=== PATIENT | male | born 1965 | race Caucasian/White ===

== ENCOUNTER 2016-05-28 19:19 | Emergency (ER) ==
--- NOTE | 2016-05-28 19:35 | ED EKG INTERP ---
EKG Interpretation - EKG Time of EKG reading by physician:: 19:34 EKG Read and Signed by:: Mason Chin EKG Interpretation (*Must complete 3 of following elements*): Normal Rate: 65 Rhythm: Sinus rhythm with short [place] Attestation - Scribe Verification/Attestation Scribe:: Ren Duran Acting as Scribe for:: Mason Chin Scribe documention review:: This chart was documented by a scribe and accurately reflects the service the provider performed and the decisions made by the provider.
[2016-05-28 20:00] LABS: MANUAL DIFF NEEDED? NO
[2016-05-28 20:09] LABS: BASO% 0.9 % (0.0-0.8); EOS# 0.14 X1000 (0.0-0.7); EOS% 1.7 % (0.0-10.0); HEMATOCRIT 38.7 % (42.0-52.0); IMM GRAN# 0.02 X1000 (0.0-0.04); IMM GRAN% 0.2 % (0.0-0.5); MCHC 36.2 g/dL (33-37); MCV 88.4 FL (81-99); MONO# 0.89 X1000 (0.11-0.59); MPV 11.1 FL (7.4-10.4); NEUT% 55.2 % (42.2-75.2); PLT 235 X1000 (130-400); RBC 4.38 XMIL (4.7-6.1)
[2016-05-28] MEDS: NITROGLYCERIN SL PRN ×3 (20:10→20:30)
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
[2016-05-28 20:26] LABS: AGAP 18; ALBUMIN 4.2 g/dL (3.5-5.0); ALKALINE PHOSPHATASE 61 U/L (32-122); BUN 11 mg/dL (8-22); CALCIUM 9.7 mg/dL (8.8-10.2); CHLORIDE 99 mmol/L (98-107); CK PROFILE 97 U/L (24-204); COSMO 278; GOT 13 U/L (10-34); GPT 10 U/L (10-44); POTASSIUM 3.8 mmol/L (3.5-5.1); SODIUM 140 mmol/L (136-145); TCO2 23 mmol/L (25-35); TOTAL BILIRUBIN 0.32 mg/dL (0.20-1.00); TOTAL PROTEIN 6.9 g/dL (6.3-8.3)
[2016-05-28 20:28] LABS: INR 0.97; PROTIME 9.9 Seconds (9.2-11.7); PTT 24.5 Seconds (22.0-36.0)
[2016-05-28] MEDS ORDERED: ZOFRAN IV ONE (20:38)
[2016-05-28] MEDS ORDERED: MORPHINE IV ONE (20:38)
--- NOTE | 2016-05-28 21:56 | Diag Imaging Result Document ---
PROCEDURE NAME: CHEST-2 VIEWS - 05/28/2016 FRONTAL AND LATERAL CHEST, 2 VIEWS: COMPARISON: 04/22/2014. FINDINGS: The lungs are well expanded. The heart is not enlarged. The vessels are not distended. No pneumonia. No pleural effusions. There has been prior surgery to the lower neck. No free air beneath the diaphragm. IMPRESSION: No acute abnormality.
[2016-05-28] MEDS ORDERED: ULTRAM PO ONE (23:07)
[2016-05-29 00:43] VITALS: BP 127/67
--- NOTE | 2016-05-30 09:52 | EKG Report ---
Test Performed on : 05/28/2016 9:20:19 PM Test Reason : CP Blood Pressure : / mmHG Vent. Rate : 060 BPM Atrial Rate : 060 BPM P-R Int : 106 ms QRS Dur : 096 ms QT Int : 404 ms P-R-T Axes : 060 066 052 degrees QTc Int : 404 ms Sinus rhythm. with short [place] Possible Left atrial enlargement Borderline ECG When compared with ECG of 28-MAY-2016 19:29, (Unconfirmed) No significant change was found Unconfirmed Result
--- NOTE | 2016-05-30 15:29 | EKG Report ---
Test Performed on : 05/28/2016 7:29:18 PM Test Reason : ED. Not ordered in [place] Blood Pressure : / mmHG Vent. Rate : 065 BPM Atrial Rate : 065 BPM P-R Int : 104 ms QRS Dur : 094 ms QT Int : 394 ms P-R-T Axes : 050 066 050 degrees QTc Int : 409 ms Sinus rhythm. with short [place] Otherwise normal ECG No previous ECGs available Unconfirmed Result
== END 2016-05-29 00:25 ==
LOC: ED 19:19
DX: M94.0 Chondrocostal junction syndrome [Tietze] (principal); R07.9 Chest pain, unspecified; R55 Syncope and collapse; R53.83 Other fatigue; M54.9 Dorsalgia, unspecified; I25.10 Atherosclerotic heart disease of native coronary artery without angina pectoris; I10 Essential (primary) hypertension; E78.5 Hyperlipidemia, unspecified; Z79.899 Other long term (current) drug therapy; I25.2 Old myocardial infarction; G89.29 Other chronic pain; C45.7 Mesothelioma of other sites; R94.31 Abnormal electrocardiogram [ECG] [EKG]; Z79.51 Long term (current) use of inhaled steroids
CPT/HCPCS: 71020; 80053; 82550; 83735; 83880; 84484; 85025; 85610; 85730; 93005; 96374; J2270; J2405